=== PATIENT | male | born 1990 | race Caucasian/White ===

== ENCOUNTER 2021-05-25 16:41 | Emergency (ER) | payer OTHER ==
[~2021-05-25] VITALS: Ht 170.2 cm; Wt 74.8 kg
[2021-05-25] MEDS ORDERED: BENZONATATE200 M1 PO (20:15)
[2021-05-25] MEDS ORDERED: ZYRTEC10 M3 PO (20:15)
== END 2021-05-25 20:41 | disposition home or self-care (01) ==
LOC: ER 16:41
DX: J06.9 Acute upper respiratory infection, unspecified (principal)

== ENCOUNTER 2021-09-08 02:54 | Outpatient (CLI) | payer OTHER ==
[~2021-09-08 02:54] MED LIST: BENZONATATE200 M1 PO; ZYRTEC10 M3 PO
== END 2021-09-08 15:00 | disposition home or self-care (01) ==
LOC: LAB 02:54
DX: Z20.818 Contact with and (suspected) exposure to other bacterial communicable diseases (principal); Z20.828 Contact with and (suspected) exposure to other viral communicable diseases

== ENCOUNTER 2021-12-06 13:59 | Emergency (ER) | payer OTHER ==
[~2021-12-06] VITALS: Ht 177.8 cm; Wt 78.9 kg
[2021-12-06] MEDS ORDERED: KETO10TA2 PO (16:21)
== END 2021-12-06 16:26 | disposition home or self-care (01) ==
LOC: ER 13:59
DX: S69.82XA Other specified injuries of left wrist, hand and finger(s), initial encounter (principal); X58.XXXA Exposure to other specified factors, initial encounter; Y93.89 Activity, other specified; Y92.89 Other specified places as the place of occurrence of the external cause; Y99.8 Other external cause status

== ENCOUNTER 2021-12-12 20:15 | Emergency (ER) | payer OTHER ==
[~2021-12-12] VITALS: Ht 177.8 cm; Wt 79.4 kg
[~2021-12-12 20:15] MED LIST changes: +KETO10TA2 PO
== END 2021-12-12 22:18 | disposition home or self-care (01) ==
LOC: ER 20:15
DX: S60.212A Contusion of left wrist, initial encounter (principal); S60.00XA Contusion of unspecified finger without damage to nail, initial encounter; X58.XXXA Exposure to other specified factors, initial encounter; Y92.89 Other specified places as the place of occurrence of the external cause; Y99.9 Unspecified external cause status; Z88.0 Allergy status to penicillin

== ENCOUNTER 2022-02-13 11:49 | Emergency (ER) | payer OTHER ==
[~2022-02-13] VITALS: Ht 177.8 cm; Wt 79.8 kg
== END 2022-02-13 16:03 | disposition home or self-care (01) ==
LOC: ER 11:49
DX: U07.1 COVID-19 (principal); Z88.0 Allergy status to penicillin

== ENCOUNTER 2025-09-22 11:28 | Emergency (ER) | payer OTHER ==
[~2025-09-22] VITALS: Ht 177.8 cm; Wt 74.4 kg
[2025-09-22] MEDS ORDERED: CLINDAMYCIN PHOSPHATE 150 MG/ML (300mg) IV STA (11:56)
[2025-09-22] MEDS ORDERED: METHYLPREDNISOLONE SOD SUCC 125 MG VIAL IV STA (11:57)
[2025-09-22] MEDS ORDERED: GUAIFENESIN 200 MG/10 ML BLIST.PACK PO STA (11:57)
[2025-09-22] MEDS ORDERED: IPRATROPIUM/ALBUTEROL SULFATE 3 ML AMPUL.NEB IH SCH (12:00)
[2025-09-22] MEDS ORDERED: IPRATROPIUM/ALBUTEROL SULFATE 3 ML AMPUL.NEB IH ONE (12:31)
[2025-09-22] MEDS ORDERED: GUAIFENESIN 200 MG/10 ML BLIST.PACK PO ONE ×2 (13:04→13:05)
[2025-09-22] MEDS ORDERED: METHYLPREDNISOLONE SOD SUCC 125 MG VIAL ONE (13:04)
[2025-09-22] MEDS ORDERED: CLINDAMYCIN PHOSPHATE 150 MG/ML (300mg) ONE (13:04)
[2025-09-22 13:51] LABS: BASO % 0.6 % (0.1-1.2); EOS # 0.33 (0.04-0.54); EOS % 5.3 % (0.7-7.0); LYMPH # 2.51 (1.18-3.74); LYMPH % 40.5 % (19.3-53.1); MEAN PLATELET VOLUME 9.30 fl (9.4-12.4); MONO # 0.55 (0.24-0.82); MONO % 8.9 % (4.7-12.5); NEUT # 2.74 (1.56-6.13); NEUT % 44.4 % (34.0-71.1); RED CELL DISTRIBUTION WIDTH 13.1 % (11.6-14.4)
[2025-09-22 14:26] LABS: ALT/SGPT 30.0 U/L (12-78); AST/SGOT 19.0 U/L (15-37); BILIRUBIN TOTAL 0.55 mg/dL (0.3-1.2); BUN CREA RATIO 17.0 (7.0-25.0); COVID-19 AG NEGATIVE (NEGATIVE); CREATININE SERUM 1.09 mg/dL (0.70-1.30); GFR 77.44; GLOBULINA 4.1 G/DL (2.4-3.5); GLUCOSE FASTING 112.0 mg/dL (65-100); OSMOLALITY SERUM 286.0 MOSM/KG (275-295)
== END 2025-09-22 14:51 | disposition home or self-care (01) ==
LOC: ER 11:28
PROVIDERS: General Practice
DX: J39.9 Disease of upper respiratory tract, unspecified (principal); J00 Acute nasopharyngitis [common cold]; Z20.822 Contact with and (suspected) exposure to COVID-19; Z88.0 Allergy status to penicillin